=== PATIENT | male | born 1950 | race Caucasian/White ===

== ENCOUNTER 2024-04-19 09:06 | Outpatient (CLI) | payer MEDICARE, MEDICAID ==
[~2024-04-19 09:06] MED LIST: KETO10TA2 PO
== END 2024-04-19 23:59 | disposition home or self-care (01) ==
LOC: MRI02 09:06
PROVIDERS: ATTEND Physician Assistant Medical
DX: M51.17 Intervertebral disc disorders with radiculopathy, lumbosacral region (principal); M54.50 Low back pain, unspecified; M48.07 Spinal stenosis, lumbosacral region
CPT/HCPCS: 72148